=== PATIENT | male | born 1970 | race Native Hawaiian/Other Pacific Islander ===

== ENCOUNTER 2016-10-26 21:12 | Emergency (ER) | payer SELFPAY ==
[~2016-10-26] VITALS: Ht 160 cm; Wt 81.6 kg
[2016-10-26 21:15] VITALS: BP 144/69
[2016-10-26] MEDS ORDERED: LIDOCAINE 1%-EPI 1:100,000 20 ML VIAL TP ONE (22:00)
--- NOTE | 2016-10-26 22:01 | NUR ---
Reynaldo Connell at bedside to suture lac on the left barr.
--- NOTE | 2016-10-26 22:23 | NUR ---
WOUND DRESSING CLEAN AND DRY UPON DISCHARGE.
== END 2016-10-26 22:23 | disposition home or self-care (01) ==
LOC: ER 21:13
DX: S81.812A Laceration without foreign body, left lower leg, initial encounter (principal); W06.XXXA Fall from bed, initial encounter; Y93.89 Activity, other specified; Y92.89 Other specified places as the place of occurrence of the external cause; Y99.8 Other external cause status
CPT/HCPCS: 12011; 99283; A4606; A6402; Z7610

== ENCOUNTER 2016-11-05 13:45 | Emergency (ER) | payer SELFPAY ==
[~2016-11-05] VITALS: Ht 180.3 cm; Wt 77.1 kg
[2016-11-05 13:50] VITALS: BP 161/91
== END 2016-11-05 14:13 | disposition home or self-care (01) ==
LOC: ER 13:47
DX: S81.812D Laceration without foreign body, left lower leg, subsequent encounter (principal); X58.XXXD Exposure to other specified factors, subsequent encounter
CPT/HCPCS: A4606; Z7502; Z7610